=== PATIENT | female | born 1980 | race Caucasian/White ===

== ENCOUNTER → 2016-07-22 | Outpatient (CLI) | payer BC | LOC: MW.CHRC 09:22 | PROVIDERS: ATTEND Family Medicine | DX: M13.0 Polyarthritis, unspecified (principal); G89.4 Chronic pain syndrome | CPT/HCPCS: 80305 ==

== ENCOUNTER → 2016-07-28 | Outpatient (CLI) | payer BC ==
[2016-07-28 16:11] LABS: CHLORIDE,CL 110 mmol/L (98-110); SODIUM,NA 142 mmol/L (136-146)
== END ==
LOC: MW.CHRC 15:30
PROVIDERS: ATTEND Family Medicine
DX: Z00.00 Encounter for general adult medical examination without abnormal findings (principal); G89.4 Chronic pain syndrome; R51 Headache
CPT/HCPCS: 36415; 80053; 80061

== ENCOUNTER 2019-04-01 00:43 | Emergency (ER) | payer BC, OTHER ==
--- NOTE | 2019-04-01 01:03 | EDM.PDOC ---
ED HPI GENERAL MEDICAL PROBLEM - General Chief Complaint: General Stated Complaint: MEDICAL CLEARANCE Time Seen by Provider: 04/01/19 00:58 Source of Information: Reports: Patient History Limitations: Reports: No Limitations - History of Present Illness INITIAL COMMENTS - FREE TEXT/NARRATIVE: Patient presents the emergency room for medical clearance. Patient states that she is not intoxicated has no medical problems and has no concerns. Patient denies any pain at all. Onset: Today Duration: Hour(s): Severity: Mild Improves with: Reports: None Worsens with: Reports: None Associated Symptoms: Reports: No Other Symptoms - Related Data Allergies Allergy/AdvReac Type Severity Reaction Status Date / Time No Known Allergies Allergy Verified 04/01/19 00:52 Home Meds: Home Meds Ibuprofen [Motrin] 400 mg PO Q4H PRN #50 tablet 09/22/13 [Rx] Past Medical History - Past Health History Medical/Surgical History: Denies Medical/Surgical History ED ROS GENERAL - Review of Systems Review Of Systems: See Below Constitutional: Reports: No Symptoms HEENT: Reports: No Symptoms Respiratory: Reports: No Symptoms Cardiovascular: Reports: No Symptoms Endocrine: Reports: No Symptoms GI/Abdominal: Reports: No Symptoms : Reports: No Symptoms Musculoskeletal: Reports: No Symptoms Skin: Reports: No Symptoms Neurological: Reports: No Symptoms Psychiatric: Reports: No Symptoms Hematologic/Lymphatic: Reports: No Symptoms Immunologic: Reports: No Symptoms ED EXAM, GENERAL - Physical Exam Exam: See Below Exam Limited By: No Limitations General Appearance: Alert, WD/WN, No Apparent Distress Eye Exam: Bilateral Eye: Normal Fundi, Normal Inspection Ear Exam: Bilateral Ear: Auricle Normal, Canal Normal, TM normal, Tenderness Nose: Normal Inspection, Normal Mucosa, No Blood Throat/Mouth: Normal Inspection, Normal Lips, Normal Teeth, Normal Gums Head: Atraumatic, Normocephalic Neck: Normal Inspection, Supple, Non-Tender, Full Range of Motion Respiratory/Chest: No Respiratory Distress, Lungs Clear, Normal Breath Sounds, No Accessory Muscle Use, Chest Non-Tender Cardiovascular: Normal Peripheral Pulses, Regular Rate, Rhythm, No Edema, No JVD , No Murmur GI/Abdominal: Normal Bowel Sounds, Soft (Female) Exam: Normal External Exam, Deferred Rectal (Female) Exam: Deferred Back Exam: Normal Inspection, Full Range of Motion Extremities: Normal Inspection, Normal Range of Motion, No Pedal Edema, Normal Capillary Refill Neurological: Alert, Oriented, CN II-XII Intact, Normal Cognition, Normal Gait, Normal Reflexes Psychiatric: Normal Affect, Normal Mood Skin Exam: Warm, Dry, Intact, Normal Color, No Rash Lymphatic: No Adenopathy Course - Vital Signs Last Recorded V/S: Last Vital Signs Temp 97.2 F 04/01/19 00:50 Pulse 101 H 04/01/19 00:50 Resp 18 04/01/19 00:50 BP 119/81 04/01/19 00:50 Pulse Ox 95 04/01/19 00:50 Departure - Departure Time of Disposition: 01:02 Disposition: Home, Self-Care 01 Condition: Good Clinical Impression: Medical clearance for incarceration - Discharge Information Referrals: Grey Savage MD [Primary Care Provider] - Sepsis Event Note - Evaluation Sepsis Screening Result: No Definite Risk - Focused Exam Vital Signs: Vital Signs Temp Pulse Resp BP Pulse Ox 04/01/19 00:50 97.2 F 101 H 18 119/81 95 Date Exam was Performed: 04/01/19 Time Exam was Performed: 00:58
[2019-04-01 01:04] VITALS: BP 119/81; PULSE 101
== END 2019-04-01 01:05 | disposition home or self-care (01) ==
LOC: MW.ED 00:43
DX: Z02.89 Encounter for other administrative examinations (principal)
CPT/HCPCS: 99282

== ENCOUNTER 2022-05-03 10:29 | Inpatient (IN) | payer MEDICAID ==
[2022-05-03] MEDS ORDERED: Sodium Chloride 0.9% 2.5 ML Syringe FLUSH PRN ×2 (11:34→15:46)
[2022-05-03] MEDS ORDERED: Sodium Chloride 0.9% 10 ML Syringe FLUSH PRN ×2 (11:34→15:46)
[2022-05-03] MEDS ORDERED: Sodium Chloride 0.9% 1,000 ML IV STA (11:34)
[2022-05-03] MEDS ORDERED: Morphine 4 MG/ML Syringe IVPUSH STA ×3 (11:58→14:59)
[2022-05-03] MEDS ORDERED: Piperacillin/Tazobactam 3.375 GM in Sodium Chloride 0.9% 50 ML IV STA (12:18)
[2022-05-03] MEDS ORDERED: Sodium Chloride 0.9% 2,000 ML IV STA (12:35)
[2022-05-03 12:44] LABS: CORONAVIRUS COVID-19 NAA NEGATIVE (NEGATIVE); INFLUENZA A NAA NEGATIVE (NEGATIVE); INFLUENZA B NAA NEGATIVE (NEGATIVE)
[2022-05-03 12:55] LABS: CARBON DIOXIDE,CO2 25.8 mmol/L (21.0-32.0); POTASSIUM,K 3.1 mmol/L (3.5-5.1)
[2022-05-03] MEDS ORDERED: Potassium Chloride 20 MEQ Tab.ER PO STA (13:04)
[2022-05-03] MEDS ORDERED: Iopamidol 755 MG/ML 500 ML Multipack Bottle IVPUSH ONE (13:30)
[2022-05-03] MEDS ORDERED: Morphine 2 MG/ML SYRINGE IVPUSH PRN (15:46)
[2022-05-03] MEDS ORDERED: Ondansetron 4 MG/2 ML SDV IVPUSH PRN (15:46)
[2022-05-03] MEDS ORDERED: Acetaminophen 325 MG Tab PO PRN (15:46)
[2022-05-03] MEDS ORDERED: Docusate Sodium 100 MG Cap PO PRN (15:46)
[2022-05-03] MEDS ORDERED: Enoxaparin 40 MG/0.4 ML Syringe SUBCUT SCH (16:00)
[2022-05-03] MEDS ORDERED: Nicotine 7 MG/24 Hr Patch TRDERM PRN (16:05)
[2022-05-03] MEDS: Sodium Chloride 0.9% 1,000 ML IV SCH (16:26)
[2022-05-03] MEDS: oxyCODONE 5 MG Tab PO PRN ×2 (16:27→20:42)
[2022-05-03] MEDS: Piperacillin/Tazobactam 3.375 GM in Sodium Chloride 0.9% 50 ML IV SCH (17:59)
[2022-05-03] MEDS: HYDROmorphone 1 MG/ML Syringe IVPUSH PRN (22:24)
[2022-05-04] MEDS: Sodium Chloride 0.9% 1,000 ML IV SCH ×2 (00:08→08:58)
[2022-05-04] MEDS: Piperacillin/Tazobactam 3.375 GM in Sodium Chloride 0.9% 50 ML IV SCH ×2 (00:08→05:33)
[2022-05-04] MEDS: HYDROmorphone 1 MG/ML Syringe IVPUSH PRN ×3 (01:55→08:38)
[2022-05-04 05:06] VITALS: BP 129/72; PULSE 101
[2022-05-04 06:35] LABS: CARBON DIOXIDE,CO2 24.7 mmol/L (21.0-32.0)
[2022-05-04] MEDS ORDERED: Potassium Chloride 20 MEQ in Premix Bag 1 BAG IV SCH (07:54)
[2022-05-04] MEDS ORDERED: Potassium Chloride 20 MEQ Tab.ER PO ONE (07:54)
[2022-05-04] MEDS ORDERED: Magnesium Sulfate/Water 4 GM in Premix Bag 1 BAG IV ONE (07:57)
[2022-05-04] MEDS ORDERED: Ketorolac 30 MG/ML SDV IVPUSH PRN (09:37)
== END 2022-05-04 09:55 | disposition left against medical advice (07) | DRG 603 ==
LOC: MW.ED 10:29 → MW.MS 14:52
PROVIDERS: ADMIT Internal Medicine; ATTEND Internal Medicine
DX: L03.012 Cellulitis of left finger (principal); L03.114 Cellulitis of left upper limb; S60.463A Insect bite (nonvenomous) of left middle finger, initial encounter; D50.9 Iron deficiency anemia, unspecified; E87.6 Hypokalemia; F15.10 Other stimulant abuse, uncomplicated; Z20.822 Contact with and (suspected) exposure to COVID-19; F17.210 Nicotine dependence, cigarettes, uncomplicated; W57.XXXA Bitten or stung by nonvenomous insect and other nonvenomous arthropods, initial encounter; Z88.8 Allergy status to other drugs, medicaments and biological substances
CPT/HCPCS: 0240U; 36415; 73201; 80048; 80053; 80202; 80305; 81001; 81025; 83605; 83735; 85025; 87040; 87070; 87075; 87086; 87205; 87641; 87077; 87186; 96361; 96365; 96367; 96375; 96376; 99284-25; A9270-GY; J1170; J1650; J2270; J2543; J3370; J3475; J3480; J3490; J7030; J7050; Q9967

== ENCOUNTER 2024-07-10 00:39 | Emergency (ER) | payer MEDICAID ==
[2024-07-10 01:37] VITALS: BP 156/96; PULSE 85
== END 2024-07-10 01:44 ==
LOC: MW.ED 00:39
DX: Z02.89 Encounter for other administrative examinations (principal); I48.91 Unspecified atrial fibrillation; I10 Essential (primary) hypertension; I25.10 Atherosclerotic heart disease of native coronary artery without angina pectoris; Z91.013 Allergy to seafood; Z79.899 Other long term (current) drug therapy
CPT/HCPCS: 99282; 99283